=== PATIENT | male | born 1965 | race Caucasian/White ===

== ENCOUNTER 2017-10-17 09:30 | Observation (INO) | payer OTHER ==
[~2017-10-17] VITALS: Ht 190.5 cm; Wt 105.7 kg
--- NOTE | ~2017-10-17 | EKG ---
[address] [address] ELECTROCARDIOGRAM REPORT Name: JOSE GREEN Room #: REG [facility].#: [id number] Admission: 10/17/17 Attend Phys: Renny Langston MD Discharge: Date of : 65 Report #: [id number] THIS REPORT FOR: //name// [facility] Test Date: 2017-10-17 Test Time: 10:07:43 Pat Name: JOSE GREEN Department: Room: Gender: Training Coordinator: MIKE : 1965 Requested By: Renny Langston Order Number: [id number] : Jose Nelson Measurements Intervals [place] Rate: 75 P: 35 MD: 157 QRS: 105 QRSD: 119 T: 57 QT: 400 QTc: 447 Interpretive Statements Sinus rhythm Nonspecific intraventricular conduction delay No previous ECG available for comparison Electronically Signed On 10-17-2017 12:40:54 CDT by Jose Nelson [email or web address] <ELECTRONICALLY SIGNED> By: Jose Nelson MD 10/17/17 1240 1007 Libby Nelson MD /BROOK
--- NOTE | ~2017-10-17 | O ---
[facility] [place] [address] OPERATIVE REPORT Name: JOSE GREEN Room #: 406-P [facility] Tanja Rodriguez#: [id number] Admission: 10/17/17 Attend Phys: Renny Langston MD Discharge: 10/18/17 Date of : 65 Report #: [id number] THIS REPORT FOR: //name// CC: Renny Jaramillo DATE OF SERVICE: 10/17/2017 PREOPERATIVE DIAGNOSIS: Bilateral inguinal hernia. POSTOPERATIVE DIAGNOSIS: Bilateral direct inguinal hernia. PROCEDURES PERFORMED: Laparoscopic properitoneal repair of bilateral inguinal hernia with mesh. ANESTHESIA: General anesthesia. COMPLICATIONS: None. ESTIMATED BLOOD LOSS: 5 mL. FINDINGS: Direct defects identified on both sides. Small right indirect sac found. DESCRIPTION OF PROCEDURE: With the patient under general anesthesia, a Cardoso catheter was placed and IV antibiotic was administered. Abdomen was prepped and draped in sterile fashion. 0.25% Marcaine was used to anesthetize skin adjacent to the umbilicus on the right side. A 2 cm incision was made adjacent to the umbilicus. The fascia was identified. The fascia was opened under visualization. The rectus muscle was spread along the length of its fiber. The posterior sheath was then identified. The space between the muscle and the posterior sheath was then dissected free bluntly. Space was created inferiorly. Origin balloon trocar was placed. CO2 was placed. A 5 mm trocar was placed about an inch and a half below the umbilicus. This was placed under visualization into the properitoneal space. The properitoneal space was then opened up, brushed away with cautery and blunt dissection. The right inferior epigastric artery and vein were identified and preserved from harm. There is a direct defect identified once the dissection was carried down to the triangle of Hesselbach. The lateral dissection was also performed freeing the lateral wall. A second 5 mm trocar was placed on the right lateral wall. Dissection was then carried out on the left side. The patient did not have an indirect hernia sac. There is a direct weakness in the wall. The right direct defect is more prominent than the left. The cord structure was dissected. There was no cord lipoma. The cord did contain some fat. Dissection was then carried out on the right side. There is a small indirect sac going up along the cord structure almost to the level of the internal ring. This was freed and brought [facility] [address] [place] [address] OPERATIVE REPORT Name: NORMAJOSE NIETO Room #: 406-P [facility] Tanja Rodriguez#: [id number] Admission: 10/17/17 Attend Phys: Renny Langston MD Discharge: 10/18/17 Date of : 65 Report #: [id number] posteriorly. The internal ring on both sides is dilated and the floor of the right inguinal canal was markedly weakened. Repair was performed with a 3DMax lightweight mesh. This was placed bilaterally. A large left side was used. This was positioned and then held in place with SorbaFix. A right-sided mesh was similarly placed and held with SorbaFix. Both sides seated well covering the direct defect. CO2 was evacuated. Trocars were removed. There was a small opening made in the peritoneum on the right side. Pneumoperitoneum was evacuated. At the incision adjacent to the umbilicus, the posterior fascia was identified and grasped with hemostat. The posterior fascia was opened along with the peritoneum. CO2 was evacuated. The posterior fascia was closed with [id number] 0 Vicryl. The anterior fascia was closed with 0 Vicryl [id number] x 2. Skin was irrigated and closed with 5-0 PDS. Steri-Strip and Band-Aids applied. The patient tolerated the procedure well. By: [id number] Renny Langston MD /nt
[~2017-10-17 09:30] MED LIST: ACCUNEB SO1.25 MG/1 INH; ASPIR 8181 MG PO; HYDROCODONE-AP1 EAC6 PO; PROTONIX40 M1 PO; SYNTHROID150 MCG PO
[2017-10-17 09:45] VITALS: BP 127/80
[2017-10-17 10:02] LABS: HEMATOCRIT 49.6 % (42.0-52.0); HEMOGLOBIN 17.1 gm/dL (14.0-18.0)
[2017-10-17 17:28] VITALS: BP 114/43
[2017-10-17 19:30] VITALS: BP 116/74
[2017-10-17 23:54] VITALS: BP 124/70
[2017-10-18 04:55] VITALS: BP 131/75
[2017-10-18 11:11] VITALS: BP 118/67
[2017-10-18 11:40] VITALS: BP 122/72
[2017-10-18] MEDS ORDERED: NORCO 5-325 TA1 EACH PO (12:56)
[2017-10-18 13:07] VITALS: BP 122/72
[2017-10-18 13:33] VITALS: BP 122/72
== END 2017-10-18 13:36 | disposition home or self-care (01) ==
LOC: OR 09:30 → 4N 14:33 → OR 14:55 → 4N 10-18 13:36
PROVIDERS: Surgery
DX: K40.20 Bilateral inguinal hernia, without obstruction or gangrene, not specified as recurrent (principal); Z86.718 Personal history of other venous thrombosis and embolism
CPT/HCPCS: 50010; 50101; 50411; 50507; 50555; 50848; 53065; 53307; 56525; 56526; 62110; 62900; 70005

== ENCOUNTER 2018-07-18 18:37 | Emergency (ER) | payer OTHER ==
[~2018-07-18] VITALS: Ht 195.6 cm; Wt 111.6 kg
[~2018-07-18 18:37] MED LIST changes: +NAPROSYN500 MG PO; +NORCO 5-325 TA1 EACH PO; +TRAMADOL 50 MG50 MG PO
[2018-07-18 18:54] LABS: URINE BILIRUBIN NEGATIVE (Negative); URINE BLOOD NEGATIVE (Negative); URINE CLARITY CLEAR; URINE COLOR YELLOW; URINE GLUCOSE-RANDOM* NEGATIVE (Negative); URINE KETONES NEGATIVE (Negative); URINE LEUKOCYTES-REFLEX NEGATIVE (Negative); URINE NITRITE-REFLEX NEGATIVE (Negative); URINE PROTEIN (DIPSTICK) NEGATIVE (Negative); URINE SPECIFIC GRAVITY 1.015 (1.005-1.035)
[2018-07-18 19:19] LABS: ABSOLUTE NEUTROPHILS 5.5 thou/uL (1.4-8.2); BASOPHILS 0.8 % (0.0-2.0); EOSINOPHILS 2.8 % (0.0-3.0); HEMATOCRIT 46.1 % (42.0-52.0); HEMOGLOBIN 15.8 gm/dL (14.0-18.0); LYMPHOCYTES 29.8 % (24.0-44.0); MCH 31.5 pg (26.0-34.0); MCHC 34.2 g/dL (28.0-37.0); MONOCYTES 7.7 % (1.0-8.0); PLATELET COUNT 238 thou/uL (150-400); POLYS 58.9 % (36.0-66.0); RBC 5.01 mil/uL (4.50-6.00); RDW 13.4 % (10.5-14.5); WBC 9.4 thou/uL (4.0-11.0)
[2018-07-18 19:39] LABS: CALCIUM 9.3 mg/dL (8.5-10.1); CREATININE 1.3 mg/dL (0.7-1.3); POTASSIUM 3.9 mmol/L (3.5-5.1)
[2018-07-18 19:42] LABS: ALBUMIN 4.4 g/dL (3.4-5.0); TOTAL BILIRUBIN 0.8 mg/dL (<0.1-1.0); TOTAL PROTEIN 8.2 g/dL (6.4-8.2)
[2018-07-18] MEDS ORDERED: BENTYL 20 MG TA20 M1 PO (21:03)
[2018-07-18] MEDS ORDERED: ONDANSETRON HCL4 M2 PO (21:03)
[2018-07-18 21:25] VITALS: BP 108/72
--- NOTE | 2018-07-19 22:06 | EKG ---
[address] [address] ELECTROCARDIOGRAM REPORT Name: NORMAJOSE EMILIA [facility] [id number] Admission: 07/18/18 Attend Phys: Discharge: 07/18/18 Date of : 65 Report #: [id number] THIS REPORT FOR: //name// [facility] ED Test Date: 2018-07-18 Test Time: 19:00:43 Pat Name: JOSE GREEN Department: Room: Gender: M [employer] Press Operator: : 1965 Requested By: Scot Mckeon Order Number: [id number] MD: Jose Nelson Measurements Intervals [place] Rate: 82 P: 37 VA: 164 QRS: 97 QRSD: 127 T: 48 QT: 404 QTc: 472 Interpretive Statements Sinus rhythm RBBB and LPFB Compared to ECG 02/11/2018 06:38:36 Left posterior fascicular block now present Right bundle-branch block now present Right-axis deviation no longer present Electronically Signed On 07-19-2018 22:06:19 PROGRAM AIDE by Jose Nelson [email or web address] <ELECTRONICALLY SIGNED> By: Jose Nelson MD 07/19/18 2206 99 99 Jose Nelson MD /EPI
== END 2018-07-18 21:26 | disposition home or self-care (01) ==
LOC: ER 18:37
PROVIDERS: Emergency Medicine
DX: R10.31 Right lower quadrant pain (principal); R10.32 Left lower quadrant pain; J44.9 Chronic obstructive pulmonary disease, unspecified; E03.9 Hypothyroidism, unspecified; K21.9 Gastro-esophageal reflux disease without esophagitis; F17.210 Nicotine dependence, cigarettes, uncomplicated; Z88.0 Allergy status to penicillin